=== PATIENT | male | born 1970 | race Caucasian/White ===

== ENCOUNTER 2023-02-25 15:23 | Emergency (ER) | payer OTHER ==
[~2023-02-25] VITALS: Ht 170.2 cm; Wt 89.8 kg
[2023-02-25 15:29] VITALS: BP 177/95
[2023-02-25] MEDS ORDERED: IBUPROFEN 600 MG TAB PO ONE (15:30)
[2023-02-25] MEDS ORDERED: LIDOCAINE MPF 1% 10 MG/ML VIAL INJ ONE ×2 (15:30→15:40)
--- NOTE | 2023-02-25 15:30 | NUR ---
52/M WALKED IN C/O LAC TO LEFT HAND FIRST DIGIT AND SECOND DIGIT. BLEEDING CONTROLLED AT THIS TIME. PT REPORTS UTD TDAY 2 YRS AGO. NKA PMH: DENIES
--- NOTE | 2023-02-25 15:40 | NUR ---
WOUND TO L THUMB AND INDEX DIGITS IRRIGATED WITH BETADINE x NS SOLUTION. + CMS.
--- NOTE | 2023-02-25 16:04 | NUR ---
FINGER SPLINT APPLIED TO L THUMB AND DRESSED WITH NON ADHERENT. XEROFORM APPLIED TO L INDEX AND DRESSED WITH NON ADHERENT. + CMS AFTER APPLICATION.
[2023-02-25] MEDS ORDERED: CEPH500C16 PO (16:05)
[2023-02-25] MEDS ORDERED: IBUP-2213 PO (16:05)
[2023-02-25] MEDS ORDERED: BACI-416 TP (16:05)
[2023-02-25 16:43] VITALS: BP 144/71
--- NOTE | 2023-02-25 16:43 | NUR ---
Patient discharged with v/s stable. Written and verbal after care instructions LACERATION CARE given and explained. Patient alert, oriented and verbalized understanding of instructions. Ambulatory with steady gait. All questions addressed prior to discharge. ID band removed. Patient advised to follow up with PMD. Rx of BACITRACIN, KEFLEX, IBUPROFEN given. Patient educated on indication of medication including possible reaction and side effects. Opportunity to ask questions provided and answered.
== END 2023-02-25 16:43 | disposition home or self-care (01) ==
LOC: MED 15:23
DX: S61.012A Laceration without foreign body of left thumb without damage to nail, initial encounter (principal); W26.0XXA Contact with knife, initial encounter; Y93.89 Activity, other specified; Y92.89 Other specified places as the place of occurrence of the external cause; Y99.8 Other external cause status
CPT/HCPCS: 12001; 99283; J2001